=== PATIENT | male | born 1955 | race Caucasian/White ===

== ENCOUNTER 2019-05-11 12:10 | Emergency (ER) | payer SELFPAY ==
--- NOTE | ~2019-05-11 | XR_ITS ---
EXAMINATION: XR chest 2V EXAM DATE: 05/11/2019 13:08 INDICATION: Cough and fever. Flu be positive. TECHNIQUE: Frontal and lateral projections of the chest obtained and reviewed. Comparison is made to prior examination from 04/22/2017. FINDINGS: Scattered granulomas. Chronic abnormal reticulation at the lung bases, could be chronic in terstitial lung disease given that this appears not significantly changed from prior study. Cardiomed iastinal silhouette is normal. No confluent consolidation, pneumothorax or pleural effusion suspected . There are mild bony degenerative changes. IMPRESSION: Chronic abnormal reticulation which could be chronic interstitial lung disease given stab ility. Reviewed, dictated and finalized at location B. [employer] IMPRESSION: Chronic abnormal reticulation which could be chronic interstitial l haroldo disease given stability.
[2019-05-11 12:18] VITALS: BP 134/76; PULSE 93; RESP 16; TEMP 37.9; O2SAT 97
--- NOTE | 2019-05-11 13:00 | ED.URI ---
HPI - URI/Sore Throat General Chief Complaint: Upper Respiratory Infection Stated Complaint: congestion Time Seen by Provider: 05/11/19 12:25 Source: patient Mode of arrival: ambulatory Limitations: no limitations History of Present Illness HPI Narrative: This is a 63 year old male that presents to the ER for cold symptoms x 5 days. Reports fever, cough, congestion, rhinorrhea, sore throat and headache. Reports some wheezing. Denies chest pain or shortness of breath. Related Data Home Medications Medication Instructions Recorded Confirmed aspirin [Adult Low Dose Aspirin] 05/11/19 fenofibrate mg 05/11/19 lisinopril 05/11/19 pravastatin 05/11/19 Allergies Allergy/AdvReac Type Severity Reaction Status Date / Time No Known Allergies Allergy Unverified 05/19/18 01:03 Review of Systems Review of Systems: Narrative: CONSTITUTIONAL: Reports fever, chills ENT: Reports rhinorrhea, congestion, sore throat, and otalgia. CARDIOVASCULAR: Denies chest pain RESPIRATORY: Reports cough. Denies dyspnea. NEUROLOGIC: Reports headache. Denies numbness, or weakness. All systems reviewed & are unremarkable except as noted in HPI and below PMFSH Past Medical History Medical History (Updated 05/11/19 @ 13:47 by Sia Chang PA-C) History of hyperlipidemia History of hypertension Social History Social History (Updated 05/11/19 @ 13:05 by Sia Chang PA-C) Smoking status: Never smoker Exam Narrative: Exam Narrative: GENERAL: Well-appearing, well-nourished, and in no acute distress. HEAD: Normocephalic, atraumatic. EYES: EOMI. ENT: Nares clear, no rhinorrhea or epistaxis. Mucous membranes moist. Oropharynx without tonsillar hypertrophy exudate or other lesions. Bilateral TMs pearly guillen non-bulging NECK: Supple. No adenopathy or masses. CHEST: Clear to auscultation. No respiratory distress. No wheezes rales or rhonchi HEART: Regular rate and rhythm. No murmur heard. Normal peripheral pulses. EXTREMITIES: Normal range of motion. No edema. SKIN: Warm, dry, no rash. NEURO: No focal deficits. Alert and oriented x3. PSYCH: Normal mood and affect Course Vital Signs Vital signs: Vital Signs Temperature 100.2 F H 05/11/19 12:18 Pulse Rate 93 01/29/20 12:18 Respiratory Rate 16 05/11/19 12:18 Blood Pressure 134/76 05/11/19 12:18 Pulse Oximetry 97 05/11/19 12:18 Temperature 100.2 F H 05/11/19 12:18 Pulse Rate 93 05/11/19 12:18 Respiratory Rate 16 05/11/19 12:18 Blood Pressure 134/76 05/11/19 12:18 Pulse Oximetry 97 05/11/19 12:18 MDM - URI/Sore Throat MDM Narrative Medical decision making narrative: Patient presents to the ER for cold symptoms x 5 days. Patient also reports some wheezing. Lungs are clear on exam today. Patient with mild temperature on arrival to 100.2. Other vitals are all normal. Chest x-ray shows chronic abnormal reticulation which could be chronic interstitial lung disease. No evidence of pneumonia. Patient's influenza B was positive. Due to patient's age and possible lung disease, patient will be started on Tamiflu. He was given an albuterol inhaler as needed. He is to follow-up with his primary care doctor. He was given warnings to return to the ER Lab Data Labs: Influenza A Screen Negative Reference Range: Negative Influenza B Screen Positive Reference Range: Negative Imaging Data Radiologist's impression: ITS Impressions Chest X-Ray 05/11/19 13:10 IMPRESSION: Chronic abnormal reticulation which could be chronic interstitial lung disease given stability. Critical Care Time Critical Care Time Critical Care Time: No Discharge Plan Discharge Clinical Impression: Influenza B Patient Disposition: Home, Self-Care Condition: Stable Instructions: Influenza (ED), Chronic Lung Disease and Infection Prevention (ED) Additional Instructions: Return to the emergency depa
[2019-05-11] MEDS: IBUPROFEN 600 MG TABLET PO (13:32)
== END 2019-05-11 14:19 | disposition home or self-care (01) ==
PROVIDERS: Emergency Provider Family Medicine; PCP Internal Medicine
DX: J10.1 Influenza due to other identified influenza virus with other respiratory manifestations (principal); E78.5 Hyperlipidemia, unspecified; I10 Essential (primary) hypertension; R91.8 Other nonspecific abnormal finding of lung field
CPT/HCPCS: 71046; 87804; 99283; A9270